=== PATIENT | female | born 1980 | race Caucasian/White ===

== ENCOUNTER 2017-10-31 01:16 | Emergency (ER) | payer MEDICAID ==
[~2017-10-31] VITALS: Ht 157.5 cm; Wt 122.7 kg
[2017-10-31] MEDS ORDERED: MethylPREDNISolone SOD SUCC 125 MG/2 ML VIAL IVP ONE (01:45)
[2017-10-31] MEDS ORDERED: DiphenhydrAMINE HCL 50 MG/ML VIAL IVP ONE (01:45)
[2017-10-31 02:45] VITALS: BP 119/84
== END 2017-10-31 03:08 | disposition home or self-care (01) ==
LOC: EMS 01:18
DX: L50.0 Allergic urticaria (principal); L29.9 Pruritus, unspecified
CPT/HCPCS: 96374; 96375; 99284; J1200; J2930

== ENCOUNTER 2022-07-21 12:23 | Emergency (ER) | payer MEDICAID, OTHER ==
[~2022-07-21] VITALS: Ht 160 cm; Wt 108.2 kg
[2022-07-21] MEDS ORDERED: ACETAMINOPHEN 500 MG TABLET PO ONE (14:15)
[2022-07-21 14:29] VITALS: BP 129/75
== END 2022-07-21 15:35 | disposition home or self-care (01) ==
LOC: EMS 12:23
DX: S09.8XXA Other specified injuries of head, initial encounter (principal); M54.2 Cervicalgia; W18.39XA Other fall on same level, initial encounter; Y93.01 Activity, walking, marching and hiking; Y92.89 Other specified places as the place of occurrence of the external cause; Y99.8 Other external cause status
CPT/HCPCS: 70450; 70486; 72125; 99284

== ENCOUNTER 2023-04-08 19:57 | Emergency (ER) | payer OTHER ==
[~2023-04-08] VITALS: Ht 154.9 cm; Wt 113.6 kg
[2023-04-08 19:58] VITALS: BP 141/80; PULSE 77; RESP 16; TEMP 98
[2023-04-08] MEDS ORDERED: PERTUSS(ACELL),DIPH,TET VAC/PF 0.5 ML SYRINGE IM. ONE (21:15)
[2023-04-08] MEDS ORDERED: BACITRACIN 0.9 GM PACKET OINTMENT TP ONE (21:20)
== END 2023-04-08 21:47 | disposition home or self-care (01) ==
LOC: EMS 19:58
DX: S60.041A Contusion of right ring finger without damage to nail, initial encounter (principal); S60.414A Abrasion of right ring finger, initial encounter; X58.XXXA Exposure to other specified factors, initial encounter; Y93.89 Activity, other specified; Y92.89 Other specified places as the place of occurrence of the external cause; Y99.8 Other external cause status
CPT/HCPCS: 90471; 90715; 99283